=== PATIENT | female | born 1965 | race Caucasian/White ===

== ENCOUNTER 2021-08-15 15:40 | Emergency (ER) | payer BC ==
[~2021-08-15] VITALS: Ht 170.2 cm; Wt 88.5 kg
[2021-08-15] MEDS ORDERED: VITAMIN D3125 MCG PO (16:02)
[2021-08-15] MEDS ORDERED: DOTTI1 EAC1 TD (16:03)
[2021-08-15] MEDS ORDERED: LISINOPRIL5 MG PO (16:04)
[2021-08-15] MEDS ORDERED: EUTHYROX75 MCG PO (16:04)
[2021-08-15] MEDS ORDERED: PROGESTERONE100 MG PO (16:05)
[2021-08-15] MEDS ORDERED: MIRTAZAPINE30 MG PO (16:05)
== END 2021-08-15 17:46 | disposition home or self-care (01) ==
LOC: ED 15:40
DX: U07.1 COVID-19 (principal); Z88.0 Allergy status to penicillin; Z88.2 Allergy status to sulfonamides; Z88.1 Allergy status to other antibiotic agents; Z79.899 Other long term (current) drug therapy
CPT/HCPCS: 99283